=== PATIENT | male | born 1945 | race Caucasian/White ===

== ENCOUNTER → 2018-04-09 | Outpatient (CLI) | payer MEDICARE ==
[~2018-04-09] MED LIST: AMLODIPINE BESI25 GM; ASPI81CH PO; CARV3.125 PO; LOSA50 PO; OMEP20ER PO; POTASSIUM CITR15 MEQ; SPIR25 PO
== END | disposition home or self-care (01) ==
LOC: LAB SHORT 10:02 → PLD 10:02
DX: C44.321 Squamous cell carcinoma of skin of nose (principal)
CPT/HCPCS: 88305

== ENCOUNTER → 2018-12-31 | Outpatient (CLI) | payer MEDICARE | END | disposition home or self-care (01) | LOC: PLD 10:52 → LAB SHORT 10:52 | DX: L57.0 Actinic keratosis (principal); L08.89 Other specified local infections of the skin and subcutaneous tissue | CPT/HCPCS: 88305 ==

== ENCOUNTER → 2019-10-01 | Outpatient (CLI) | payer MEDICARE | END | disposition home or self-care (01) | LOC: PLD 11:49 → LAB SHORT 11:49 | DX: D04.39 Carcinoma in situ of skin of other parts of face (principal) | CPT/HCPCS: 88305 ==

== ENCOUNTER → 2020-04-07 | Outpatient (CLI) | payer MEDICARE | END | disposition home or self-care (01) | LOC: PLD 11:16 → LAB SHORT 11:16 | DX: D04.39 Carcinoma in situ of skin of other parts of face (principal); L57.8 Other skin changes due to chronic exposure to nonionizing radiation | CPT/HCPCS: 88305 ==

== ENCOUNTER → 2021-08-09 | Outpatient (CLI) | payer MEDICARE | END | disposition home or self-care (01) | LOC: LAB SHORT 08:20 | DX: L60.8 Other nail disorders (principal) | CPT/HCPCS: 87220 ==

== ENCOUNTER → 2022-04-03 | Outpatient (CLI) | payer MEDICARE | END | disposition home or self-care (01) | LOC: PLD 11:14 → LAB SHORT 11:14 | DX: D04.61 Carcinoma in situ of skin of right upper limb, including shoulder (principal) | CPT/HCPCS: 88305 ==

== ENCOUNTER → 2022-08-14 | Outpatient (CLI) | payer MEDICARE | END | disposition home or self-care (01) | LOC: PLD 12:20 → LAB SHORT 12:20 | DX: L57.0 Actinic keratosis (principal) | CPT/HCPCS: 88305 ==

== ENCOUNTER → 2022-09-07 | Outpatient (CLI) | payer MEDICARE | LOC: LAB SHORT 11:16 → PLD 11:16 | DX: L57.0 Actinic keratosis (principal) | CPT/HCPCS: 88305 ==

== ENCOUNTER → 2023-04-11 | Outpatient (CLI) | payer MEDICARE ==
[2023-04-11 14:09] LABS: Bun/Creatinine Ratio 19.3 (12.0-20.0); Calcium, Blood 9.1 mg/dL (8.5-10.1); Creatinine, Blood 0.99 mg/dL (0.60-1.20)
== END | disposition home or self-care (01) ==
LOC: LAB 11:57 → LAB SHORT 11:57
PROVIDERS: Internal Medicine Cardiovascular Disease
DX: I50.32 Chronic diastolic (congestive) heart failure (principal); R94.31 Abnormal electrocardiogram [ECG] [EKG]
CPT/HCPCS: 36415; 80048

== ENCOUNTER → 2023-06-11 | Outpatient (CLI) | payer MEDICARE | END | disposition home or self-care (01) | LOC: PLD 09:52 → LAB SHORT 09:52 | DX: D09.8 Carcinoma in situ of other specified sites (principal); L57.0 Actinic keratosis | CPT/HCPCS: 88305 ==